=== PATIENT | male | born 1985 | race Two or more races ===

== ENCOUNTER 2018-02-07 13:53 | Emergency (ER) | payer SELFPAY ==
[~2018-02-07] VITALS: Ht 185.4 cm; Wt 99.8 kg
[2018-02-07] MEDS ORDERED: SODIUM CHLORIDE 0.9% 1,000 ML IV ONE (14:03)
[2018-02-07] MEDS ORDERED: LORazepam 2MG/ML-1ML VIAL IV ONE (14:15)
[2018-02-07 14:50] LABS: Basophils # (auto) 0 uL; Basophils % (auto) 0.3 % (0.0-2.0); Eosinophils # (auto) 0.2 uL; Eosinophils % (auto) 1.4 % (0.0-7.0); Hematocrit 51.2 % (41.0-53.0); Hemoglobin 17.5 g/dL (13.5-17.5); Lymphocytes # (auto) 1.9 uL; Lymphocytes % (auto) 17.6 % (10.0-50.0); Mean Corpuscular Hemoglobin 29.8 pg (28.0-32.0); Mean Corpuscular Hgb Conc. 34.1 g/dL (32.0-36.0); Mean Corpuscular Volume 87.4 fL (80.0-100.0); Monocytes # (auto) 0.9 uL; Monocytes % (auto) 8.5 % (0.0-12.0); Neutrophils % (auto) 72.2 % (37.0-80.0); Nucleated Red Blood Cells % 0.2 %; Platelet Count (auto) 250 10^3/uL (140-450); Red Blood Cells 5.86 10^6/uL (4.5-5.90); Red Cell Distribution Width 13.7 % (11.8-14.3)
[2018-02-07 15:12] VITALS: BP 107/74
[2018-02-07 15:28] LABS: Potassium 4.2 mmol/L (3.5-5.1)
[2018-02-07 16:15] LABS: Urine Bacteria NONE SEEN /hpf (None Seen); Urine Blood Negative /uL (Negative); Urine Mucus FEW (None Seen); Urine Specific Gravity 1.028 (1.001-1.035); Urine WBC 1 /hpf (0 - 3)
[2018-02-07 16:21] LABS: Albumin 3.9 g/dL (3.4-5.0); BUN/Creatinine Ratio 11.6; Calcium 9.5 mg/dL (8.5-10.1)
[2018-02-07 16:23] LABS: Bilirubin, Total 0.6 mg/dL (0.2-1.0); Total Protein 8.8 g/dL (6.4-8.2)
== END 2018-02-07 15:52 | disposition home or self-care (01) ==
LOC: ER 13:53
DX: G40.909 Epilepsy, unspecified, not intractable, without status epilepticus (principal); R42 Dizziness and giddiness
CPT/HCPCS: 36415; 70450; 80053; 81001; 85025; 96361; 96374; 99284; J2060